=== PATIENT | male | born 1990 | race Caucasian/White ===

== ENCOUNTER 2020-03-26 18:31 | Emergency (ER) | payer SELFPAY ==
[2020-03-26 19:08] VITALS: BP 132/81; PULSE 70; RESP 17; TEMP 36.5; O2SAT 98; BMI 25.7
[2020-03-26 19:32] VITALS: BP 125/82; PULSE 66; RESP 16; O2SAT 99
--- NOTE | 2020-03-26 19:37 | XRR_ITS ---
PROCEDURE INFORMATION: Exam: XR Thoracic Spine, 3 Views Exam date and time: 03/26/2020 7:57 PM Age: 29 years old Clinical indication: Injury or trauma; Fall; Initial encounter; Blunt trauma (contusions or hematomas); Additional info: Fall/injury TECHNIQUE: Imaging protocol: XR of the thoracic spine, 3 views. COMPARISON: No relevant prior studies available. FINDINGS: Vertebrae: Vertebral body height is maintained. No subluxation. Normal bone mineralization. No acute fracture. Soft tissues: No paravertebral soft tissue abnormality. No radiopaque foreign body. Lungs: Visualized lungs are clear. XR/XR thoracic spine 2V [id number] IMPRESSION: No acute fracture of the thoracic spine. CT scan would be recommended if there is continuing clinical concern for fracture.
--- NOTE | 2020-03-26 19:37 | ED_ITS ---
HPI - Back Pain/Injury General: Chief Complaint: Back Pain/Injury Stated Complaint: back pain/fell Time Seen by Provider: 03/26/20 19:35 Source: patient Mode of arrival: ambulatory Limitations: no limitations History of Present Illness: HPI Narrative: Adam is a 29-year-old male who states 2 days ago he slipped and fell after he walked on a towel. He landed on his buttocks and back. Not complaining of pain in his lumbar spine. He denies any radiation of the pain. The pain is located just there in his lumbar spine. He did not hit his head and he did not have loss of consciousness. He is not on any blood thinners. He states range of motion makes his symptoms worse and rest makes them better. He describes the pain as mild to moderate. He denies other injuries or complaints. Associated symptoms: Deny abdominal pain, chills, difficulty walking, dysuria, fatigue, fever(s), hematuria, nausea, syncope, urinary urgency or vomiting Review of Systems Const: Denies: fever(s), chills, body aches, fatigue, malaise or diaphoresis Eyes: Denies: change in vision, blurry vision, photophobia, eye discomfort, eye discharge, eye redness or yellow eyes ENMT: Denies: throat pain, odynophagia, hoarseness, swelling of lips/tongue, ear or mastoid pain, ear discharge, change in hearing or nasal discharge Card: Denies: chest pain, palpitations, irregular heart rhythm, edema, lightheadedness, syncope, pre-syncope, dyspnea on exertion or orthopnea Resp: Denies: dyspnea, productive cough, non-productive cough, wheezing, hemoptysis or chest congestion GI: Denies: abdominal pain, nausea, vomiting, hematemesis, coffee ground emesis, heartburn, diarrhea, constipation, GI cramping, hematochezia or melena : Denies: flank pain, dysuria, urinary frequency, urinary urgency or hematuria Musc: Reports: back pain; Denies: neck pain, extremity pain, extremity swelling, joint pain, joint swelling, joint redness, joint warmth or joint stiffness Skin/Breast: Denies: rash, pruritus, erythema, skin pain or skin tenderness Neuro: Denies: headache(s), numbness in extremities, weakness in extremities, sensory changes, lack of coordination, difficulty walking, dizziness, vertigo, confusion, Slurred speech present or seizure-like activity Sid/Lymph: Denies: easy bruising, easy bleeding, petechiae, purpura or enlarged lymph nodes All/Imm: Denies: urticaria, throat swelling, tongue swelling, facial swelling or acute wheezing PFS ED PFSH: Medical History (Updated 03/26/20 @ 20:53 by Grace Longo) No pertinent past medical history Physical Exam Const: COMMON NORMALS: no acute distress, patient oriented x3, no limitations and alert GENERAL APPEARANCE: cooperative HENMT: COMMON NORMALS: normocephalic, atraumatic, external ears normal, EAC's normal and Normal external nose present HEAD & SCALP: normal to inspection, normocephalic and atraumatic FACE & SINUS: normal facial exam and face symmetric NOSE: Normal external nose present and Normal nares present EXTERNAL EAR: Yes external ears normal EXTERNAL AUDITORY CANAL: EAC's normal MOUTH: Normal oral and palatal mucosa present, lip normal and tongue normal Eye: COMMON NORMALS: Equal, round and reactive pupils present and conjunctivae normal GENERAL EYE: appearance normal, both eyes and all related structures ALIGNMENT: Yes alignment normal PERIORBITAL: periorbital findings normal EYELID: eyelids normal CONJUNCTIVA: Yes conjunctivae normal SCLERA: sclerae normal PUPIL: Yes Equal, round and reactive pupils present Neck/C-Spine: COMMON NORMALS: full ROM, no lymphadenopathy, supple, no meningeal signs and no JVD GENERAL: Yes normal visual inspection and Yes trachea midline Chest: COMMONS NORMALS: normal inspection of the chest and normal palpation of entire chest wall Resp: COMMON NORMALS: normal respiratory effort, No retractions, No use of accessory muscles and clear to auscultation bilaterally EFFORT & INSPECTION: Yes able to speak in complete sentences and Yes symmetric chest movement AUSCULTATION: clear to auscultation bilaterally, no crackles, no rales, no rhonchi and no wheezes Cardio: COMMON NORMALS: no JVD, regular rate, regular rhythm, S1 normal heart sound present and S2 normal heart sound present RATE: regular rate RHYTHM: regular rhythm HEART SOUNDS: S1 normal heart sound present, S2 normal heart sound present, no click, no gallops, no murmurs and no rubs GI: COMMON NORMALS: Soft to palpation and No hepatosplenomegaly present PALPATION: Yes Soft to palpation, No Tenderness to palpation present (GI), No Guarding due to palpation present (GI), No Rigid due to palpation, Yes No hepatosplenomegaly present, No Hernia present, No Palpable mass present and No P ulsatile mass present : COMMON NORMALS: Yes no CVA tenderness BLADDER/KIDNEY EXAM: Yes no CVA tenderness Back/Pelvis: COMMON NORMALS: no CVA tenderness and thoraco-lumbar ROM normal OTHER: Mild tenderness to the midline of the mid and upper lumbar spine. No evidence of contusion. Extremity: COMMON NORMALS: normal to inspection, full ROM, capillary refill normal, no joint enlargement, no clubbing, cyanosis or edema and no calf tenderness Neuro: COMMON NORMALS: patient oriented x3, CN's II-XII intact bilaterally, moves all extremities, no focal motor deficits and no sensory deficits noted SENSORIUM/ORIENTATION: Yes alert MENINGEAL SIGNS: Yes no meningeal signs SPEECH: speech normal Psych: COMMON NORMALS: mental status grossly normal, Normal thought process present, cooperative, normal affect, speech normal and activity/motor behavior normal SPEECH: Yes normal speech THOUGHT PROCESS: Normal thought process present Skin: COMMON NORMALS: no rashes or lesions noted, turgor normal, no jaundice, no petechiae and no mottling GENERAL SKIN EXAM: no rashes or lesions noted and turgor normal Course Vital Signs: Vital signs: Vital Signs Temperature 97.7 F 03/26/20 19:08 Pulse Rate 64 03/26/20 20:35 Respiratory Rate 16 03/26/20 20:35 Blood Pressure 136/84 03/26/20 20:35 Pulse Oximetry 97 03/26/20 20:35 MDM - Back Pain/Injury MDM Narrative: Medical decision making narrative: Adam is a nice 29-year-old male who comes in complaining of back pain after a fall. His x-rays are unremarkable. His exam does not suggest herniated disc, cauda equina syndrome or significant fracture. Patient agrees to go home and try Tylenol Motrin for pain. Imaging Data^: XR Lumbar Spine: Attestation: I personally reviewed and interpreted this imaging study as follows: My impression: No acute fractures dislocation XR Thoracic Spine: Attestation: I personally reviewed and interpreted this imaging study as follows : My impression: No acute thoracic fractures or dislocations Discharge Plan Discharge Patient Disposition: Home Clinical Impression: Back pain Qualifiers: Back pain location: low back pain Chronicity: acute Back pain laterality: bilateral Sciatica presence: without sciatica Qualified Code(s): M54.5 - Low back pain Condition: Stable Discharge Orders: Discharge Order (Routine); Ordered 03/26/20 Ordered By: Grace Longo Referrals: Chana Soto DO [Physician] - 1-3 days Discharge Diet: Usual diet Discharge Activity: Increase activity as tolerated Patient Instructions: Acute Low Back Pain (ED) Activity Restrictions/Additional Instructions: Please return to the ER immediately for any of the signs or symptoms listed on your discharge instruction sheets, worsening/changing of your symptoms, you are not getting better as quickly as expected, or for ANY other cause or concerns. Return to the ER for increased pain, fever, radiation down your legs, loss of bowel or bladder control, numbness in your groin, or for any other cause for concern. Coding Level of Care Code ED Head Waiter/Waitress Banquet for Nhan Fwd Exam Comprehensive
--- NOTE | 2020-03-26 19:37 | XRR_ITS ---
PROCEDURE INFORMATION: Exam: XR Lumbosacral Spine, 2 or 3 Views Exam date and time: 03/26/2020 8:03 PM Age: 29 years old Clinical indication: Injury or trauma; Fall; Initial encounter; Blunt trauma (contusions or hematomas); Additional info: Fall/injury TECHNIQUE: Imaging protocol: XR of the lumbosacral spine, 2 or 3 views. COMPARISON: No relevant prior studies available. FINDINGS: Vertebrae: Vertebral body height is maintained. No subluxation. Normal bone mineralization. No acute fracture. Sacrum/coccyx: The right and left sacroiliac joints are unremarkable. Soft tissues: No paravertebral soft tissue abnormality. No radiopaque foreign body. XR/XR lumbar spine 2-3V* [id number] IMPRESSION: No acute fracture of the lumbar spine. CT scan would be recommended if there is continuing clinical concern for fracture.
[2020-03-26 20:35] VITALS: BP 136/84; PULSE 64; RESP 16; O2SAT 97
[2020-03-26] MEDS: ibuprofen 200 mg Tablet 400 MG PO (21:04)
[2020-03-26] MEDS: acetaminophen 500 mg Tablet 1000 MG PO (21:05)
[2020-03-26 21:08] VITALS: BP 136/84; PULSE 64; RESP 16; TEMP 36.7; O2SAT 97
== END 2020-03-26 21:08 | disposition home or self-care (01) ==
PROVIDERS: Emergency Provider Emergency Medicine
DX: M54.5 Low back pain (principal)
CPT/HCPCS: 12345; 72070; 72100; 99282; 99283

== ENCOUNTER 2021-11-24 14:51 | Emergency (ER) | payer MEDICAID, SELFPAY ==
[2021-11-24 15:03] VITALS: BP 144/83; PULSE 85; RESP 18; TEMP 36.6; O2SAT 97; BMI 32.1
--- NOTE | 2021-11-24 15:08 | XR_ITS ---
WS: [id number] XR chest 1V portable [id number] REASON FOR EXAM: cp FINDINGS: Thoracic aorta is normal. There is mild cardiomegaly. 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 No active pulmonary parenchymal or pleural abnormality. Mild mid thoracic scoliosis. XR/XR chest 1V portable [id number] IMPRESSION: No acute chest abnormality. Mild cardiomegaly.
--- NOTE | 2021-11-24 15:09 | ECG_ITS ---
[facility] Test Date: 2021-11-24 Pat Name: Adam Perace Department: Room: Gender: Male Child Development Consultant: : 1990 Requested By: Andrea Jo Order Number: [id number] Danelle MD: rBuno Monroe M.D. Measurements Intervals [place] Rate: 77 P: 43 W[place]: 181 QRS: 83 QRSD: 126 T: 45 QT: 361 QTc: 409 Interpretive Statements SINUS RHYTHM MODERATE INTRAVENTRICULAR CONDUCTION DELAY [110+ ms QRS DURATION] No previous ECG available for comparison Electronically Signed On 11-24-2021 20:41:13 CDT by Bruno Monroe M.D. [id number]
--- NOTE | 2021-11-24 15:16 | W.ED.CHESTPA ---
Documented by User: [email or web address] Nam 11/26/21 17:02 HPI - Chest Pain General: Chief Complaint: Chest Pain Stated Complaint: heat exposure Time Seen by Provider: 11/24/21 15:08 History of Present Illness: Patient is a 31-year-old male comes to the ED via EMS with chest pain. Patient says he was at work today and he works outside. He started feeling really hot and sweaty. He went and laid down on the grass and then he started feeling some chest pain on the left side of his chest. He rates the pain currently an 8 out of 10. Denies any cardiac history. Chest pain worsens when he sits up or talking or upon inspiration. Denies any syncopal episode or near syncope. Associated symptoms: Deny abdominal pain, dyspnea, fever(s), nausea, palpitations, syncope or vomiting Review of Systems Const: Denies: fever(s), chills or fatigue Eyes: Denies: change in vision or eye discomfort ENMT: Denies: throat pain, odynophagia, nasal discharge or nasal congestion Card: Reports: chest pain; Denies: palpitations, edema, swelling of feet/ankles, syncope, pre-syncope, dyspnea on exertion or orthopnea Resp: Denies: dyspnea, productive cough or non-productive cough GI: Denies: abdominal pain, nausea, vomiting, diarrhea, constipation or hematochezia : Denies: flank pain, difficulty urinating, dysuria or hematuria Musc: Denies: neck pain, back pain or extremity swelling Skin/Breast: Denies: rash or new lesions Neuro: Denies: headache(s), numbness in extremities or weakness in extremities [facility] ED PFSH: Medical History No pertinent past medical history Physical Exam Const: COMMON NORMALS: patient oriented x3 and alert GENERAL APPEARANCE: cooperative HENMT: COMMON NORMALS: normocephalic HEAD & SCALP: normocephalic MOUTH: moist mucous membranes abnormal Details: parched THROAT: posterior oropharynx normal and uvula midline Neck/C-Spine: COMMON NORMALS: supple GENERAL: Yes normal visual inspection Resp: COMMON NORMALS: normal respiratory effort, No retractions, No use of accessory muscles and clear to auscultation bilaterally AUSCULTATION: clear to auscultation bilaterally Cardio: COMMON NORMALS: regular rate, regular rhythm, S1 normal heart sound present, S2 normal heart sound present, No gallops present (Cardio), No clicks present (Cardio), No murmurs present (Cardio) and Peripheral pulses 2+ throughout RATE: regular rate RHYTHM: regular rhythm HEART SOUNDS: S1 normal heart sound present and S2 normal heart sound present PERIPHERAL PULSES: Peripheral pulses 2+ throughout GI: COMMON NORMALS: Normal to inspection, nondistended, normoactive bowel sounds present, Soft to palpation, non-tender and no masses PALPATION: Yes Soft to palpation : COMMON NORMALS: Yes no CVA tenderness BLADDER/KIDNEY EXAM: Yes no CVA tenderness Back/Pelvis: COMMON NORMALS: no CVA tenderness Extremity: COMMON NORMALS: normal to inspection Neuro: COMMON NORMALS: patient oriented x3 and moves all extremities SENSORIUM/ORIENTATION: Yes alert Skin: GENERAL SKIN EXAM: dry skin Course Vital Signs: Vital signs: Vital Signs Temperature 98 F 11/24/21 15:03 Pulse Rate 87 11/24/21 15:24 Respiratory Rate 20 H 11/24/21 17:03 Blood Pressure 142/87 11/24/21 15:24 Pulse Oximetry 100 11/24/21 15:30 MDM - Chest Pain Lab Data I reviewed the patient's lab results. : 11/24/21 15:19 11/24/21 16:27 Radiology Impressions Chest X-Ray 11/24/21 15:08 IMPRESSION: No acute chest abnormality. Mild cardiomegaly. Laboratory Results WBC 8.8 10^3/uL (4.0-10.0) 11/24/21 15:19 RBC 5.26 10^6/uL (4.1-5.3) 11/24/21 15:19 Hgb 16.5 g/dL (11.7-16.6) 11/24/21 15:19 Hct 48.8 % (42.0-52.0) 11/24/21 15:19 MCV 92.8 fl (80-94) 11/24/21 15:19 MCH 31.4 pg (28.0-34.0) 11/24/21 15:19 MCHC 33.8 g/dL (30.0-36.0) 11/24/21 15:19 RDW 12.7 % (12.1-15.1) 11/24/21 15:19 Plt Count 265 10^3/cmm (130-400) 11/24/21 15:19 MPV 11.6 fL (7.4-10.4) H 11/24/21 15:19 Neut % (Auto) 62.3 % 11/24/21 15:19 Lymph % (Auto) 24.9 % 11/24/21 15:19 [place] % (Auto) 8.6 % 11/24/21 15:19 Eos % (Auto) 3.7 % 11/24/21 15:19 Baso % (Auto) 0.3 % 11/24/21 15:19 Neut # (Auto) 5.48 10^3/uL (1.8-7.7) 11/24/21 15:19 Lymph # (Auto) 2.2 10^3/uL (0.8-4.8) 11/24/21 15:19 [place] # (Auto) 0.8 10^3/uL (0.2-0.9) 11/24/21 15:19 Eos # (Auto) 0.3 10^3/uL (0.0-0.8) 11/24/21 15:19 Baso # (Auto) 0.0 10^3/uL (0.0-0.1) 11/24/21 15:19 Nucleated RBC % (auto) 0 % 11/24/21 15: Nucleated RBCs # 0.0 /100WBC 11/24/21 15:19 Sodium 138 mmol/L (136-145) 11/24/21 16:27 Potassium 3.7 mmol/L (3.5-5.1) 11/24/21 16:27 Chloride 105 mmol/L (98-107) 11/24/21 16:27 Carbon Dioxide 22 mmol/L (22-29) 11/24/21 16:27 Anion Gap 14.7 (5-19) 11/24/21 16:27 BUN 13 mg/dL (6-20) 11/24/21 16:27 Creatinine 0.9 mg/dL (0.7-1.2) 11/24/21 16:27 GFR Calculation 99.8 mL/min (90-130) 11/24/21 16:27 Glucose 86 mg/dL (65-115) 11/24/21 16:27 Calculated Osmolality 285 mOsm/kg (285-295) 11/24/21 16:27 Calcium 9.3 mg/dL (8.5-10.5) 11/24/21 16:27 Total Bilirubin 0.5 mg/dL (0.15-1.2) 11/24/21 16:27 AST 121 U/L (0-40) H 11/24/21 16:27 ALT 220 U/L (0-41) H 11/24/21 16:27 Alkaline Phosphatase 87 IU/L (40-130) 11/24/21 16:27 Creatine Kinase 201 U/L (39-308) 11/24/21 15:19 Troponin T Baseline 7 ng/L (0-15) 11/24/21 15:19 Troponin T 120 Minute 6.00 ng/L (0-15) 11/24/21 17:21 Delta Troponin T -1.00 ABS# (0-10) L 11/24/21 17:21 Total Protein 7.5 g/dL (6.6-8.7) 11/24/21 16:27 Albumin 4.2 g/dL (3.5-5.2) 11/24/21 16:27 Globulin 3.3 g/dL (1.3-4.6) 11/24/21 16:27 Discharge Plan Discharge Patient Disposition: Home Clinical Impression: Chest pain Qualifiers: Chest pain type: unspecified Qualified Code(s): R07.9 - Chest pain, unspecified Heat exhaustion Qualifiers: Encounter type: initial encounter Qualified Code(s): T67.5XXA - Heat exhaustion, unspecified, initial encounter Condition: Stable Prescriptions: No Action No Known Home Medications 0RF Discharge Orders: Discharge ED (Routine); Ordered 11/24/21 Ordered By: Rodolfo Omer Discharge Diet: Usual diet Discharge Activity: Increase activity as tolerated Patient Instructions: Heat Exhaustion (ED) Activity Restrictions/Additional Instructions: Make sure to drink plenty of water and fluids. Use acetaminophen and ibuprofen for pain. When sweating a lot you should supplement water with Gatorade solution. Follow-up with primary care for further instruction. Return to ER for new concerns. Sign Out Sign Out Data: Patient Sign Out occurred on 11/24/21 at 17:07. Patient's care was discussed, and care was transferred from to Rodolfo Omer. Coding Level of Care Code ED Chamber Walker for Chg Fwd Exam Comprehensive Documented by User: RABIA Mukherjee 11/24/21 17:45 HPI - Chest Pain General: Chief Complaint: Chest Pain Stated Complaint: heat exposure Time Seen by Provider: 11/24/21 15:08 [facility] ED PFSH: Medical History No pertinent past medical history Course Vital Signs: Vital signs: Vital Signs Temperature 98 F 11/24/21 15:03 Pulse Rate 87 11/24/21 15:24 Respiratory Rate 20 H 11/24/21 17:03 Blood Pressure 142/87 11/24/21 15:24 Pulse Oximetry 100 11/24/21 15:30 MDM - Chest Pain Medical Decision Making 31-year-old male patient comes in today for complaints of chest discomfort. Patient was at work and became overheated he reports and then laid down and started having left-sided chest discomfort. Patient appeared in moderate to severe pain. Respirations were even lungs were clear to auscultation. Vital signs noted a blood pressure of 144/83. EKG showed sinus rhythm. No edema was noted in the extremities. Differential diagnosis includes but not limited to ACS, heat exhaustion, dehydration. Patient was treated for pain and anxiety with morphine and Ativan. Patient was treated for dehydration with saline. After IV fluids and medications patient felt better and was able to eat and drink without difficulty. Laboratory values noted no abnormality and electrolytes, or in blood count. Initial troponin was 7. Patient did note some mild elevation in AST and ALT. Patient is believed to have had heat exhaustion. Encourage patient to drink plenty of water and also supplement with electrolyte solution when sweating profusely. Patient reported understanding of care plan need for follow-up or return to the ER. Lab Data : 11/24/21 15:19 11/24/21 16:27 Radiology Impressions Chest X-Ray 11/24/21 15:08 IMPRESSION: No acute chest abnormality. Mild cardiomegaly. Laboratory Results WBC 8.8 10^3/uL (4.0-10.0) 11/24/21 15:19 RBC 5.26 10^6/uL (4.1-5.3) 11/24/21 15:19 Hgb 16.5 g/dL (11.7-16.6) 11/24/21 15:19 Hct 48.8 % (42.0-52.0) 11/24/21 15:19 MCV 92.8 fl (80-94) 11/24/21 15:19 MCH 31.4 pg (28.0-34.0) 11/24/21 15:19 MCHC 33.8 g/dL (30.0-36.0) 11/24/21 15:19 RDW 12.7 % (12.1-15.1) 11/24/21 15:19 Plt Count 265 10^3/cmm (130-400) 11/24/21 15:19 MPV 11.6 fL (7.4-10.4) H 11/24/21 15:19 Neut % (Auto) 62.3 % 11/24/21 15:19 Lymph % (Auto) 24.9 % 11/24/21 15:19 [place] % (Auto) 8.6 % 11/24/21 15:19 Eos % (Auto) 3.7 % 11/24/21 15:19 Baso % (Auto) 0.3 % 11/24/21 15:19 Neut # (Auto) 5.48 10^3/uL (1.8-7.7) 11/24/21 15:19 Lymph # (Auto) 2.2 10^3/uL (0.8-4.8) 11/24/21 15:19 [place] # (Auto) 0.8 10^3/uL (0.2-0.9) 11/24/21 15:19 Eos # (Auto) 0.3 10^3/uL (0.0-0.8) 11/24/21 15:19 Baso # (Auto) 0.0 10^3/uL (0.0-0.1) 11/24/21 15:19 Nucleated RBC % (auto) 0 % 11/24/21 15:19 Nucleated RBCs # 0.0 /100WBC 11/24/21 15:19 Sodium 138 mmol/L (136-145) 11/24/21 16:27 Potassium 3.7 mmol/L (3.5-5.1) 11/24/21 16:27 Chloride 105 mmol/L (98-107) 11/24/21 16:27 Carbon Dioxide 22 mmol/L (22-29) 11/24/21 16:27 Anion Gap 14.7 (5-19) 11/24/21 16:27 BUN 13 mg/dL (6-20) 11/24/21 16:27 Creatinine 0.9 mg/dL (0.7-1.2) 11/24/21 16:27 GFR Calculation 99.8 mL/min (90-130) 11/24/21 16:27 Glucose 86 mg/dL (65-115) 11/24/21 16:27 Calculated Osmolality 285 mOsm/kg (285-295) 11/24/21 16:27 Calcium 9.3 mg/dL (8.5-10.5) 11/24/21 16:27 Total Bilirubin 0.5 mg/dL (0.15-1.2) 11/24/21 16:27 AST 121 U/L (0-40) H 11/24/21 16:27 ALT 220 U/L (0-41) H 11/24/21 16:27 Alkaline Phosphatase 87 IU/L (40-130) 11/24/21 16:27 Creatine Kinase 201 U/L (39-308) 11/24/21 15:19 Troponin T Baseline 7 ng/L (0-15) 11/24/21 15:19 Troponin T 120 Minute 6.00 ng/L (0-15) 11/24/21 17:21 Delta Troponin T -1.00 ABS# (0-10) L 11/24/21 17:21 Total Protein 7.5 g/dL (6.6-8.7) 11/24/21 16:27 Albumin 4.2 g/dL (3.5-5.2) 11/24/21 16:27 Globulin 3.3 g/dL (1.3-4.6) 11/24/21 16:27 Discharge Plan Discharge Patient Disposition: Home Clinical Impression: Chest pain Qualifiers: Chest pain type: unspecified Qualified Code(s): R07.9 - Chest pain, unspecified Heat exhaustion Qualifiers: Encounter type: initial encounter Qualified Code(s): T67.5XXA - Heat exhaustion, unspecified, initial encounter Condition: Stable Prescriptions: No Action No Known Home Medications 0RF Discharge Orders: Discharge ED (Routine); Ordered 11/24/21 Ordered By: Rodolfo Omer Discharge Diet: Usual diet Discharge Activity: Increase activity as tolerated Patient Instructions: Heat Exhaustion (ED) Activity Restrictions/Additional Instructions: Make sure to drink plenty of water and fluids. Use acetaminophen and ibuprofen for pain. When sweating a lot you should supplement water with Gatorade solution. Follow-up with primary care for further instruction. Return to ER for new concerns. Sign Out Sign Out Data: Patient Sign Out occurred on 11/24/21 at 17:07. Patient's care was discussed, and care was transferred from to Rodolfo Omer. Coding Level of Care Code ED Chamber Walker for Nhan Carballo Exam Comprehensive
[2021-11-24 15:24] VITALS: BP 142/87; PULSE 87; RESP 20; O2SAT 98
[2021-11-24] MEDS: ondansetron 2 mg/ML SDV 2 mL 4 MG IVP (15:26)
[2021-11-24] MEDS: sodium chloride 0.9% 1,000 ML 999 ML IV ×2 (15:26→16:59)
[2021-11-24 15:30] VITALS: RESP 16; O2SAT 100
[2021-11-24] MEDS: morphine 4 mg/mL SDV 1 mL IVP (15:30)
[2021-11-24] MEDS: aspirin 81 mg Chew Tablet 324 MG PO (15:30)
[2021-11-24 15:31] LABS: Basophils % 0.3 %; Eosinophils # 0.3 10^3/uL (0.0-0.8); Eosinophils % 3.7 %; Hematocrit 48.8 % (42.0-52.0); Hemoglobin 16.5 g/dL (11.7-16.6); Lymphocytes # 2.2 10^3/uL (0.8-4.8); Lymphocytes % 24.9 %; Mean Corpuscular HGB Conc 33.8 g/dL (30.0-36.0); Mean Corpuscular Hemoglobin 31.4 pg (28.0-34.0); Mean Corpuscular Volume 92.8 fl (80-94); Mean Platelet Volume 11.6 fL (7.4-10.4); Monocytes # 0.8 10^3/uL (0.2-0.9); Monocytes % 8.6 %; Neutrophils # 5.48 10^3/uL (1.8-7.7); Neutrophils % 62.3 %; Nucleated Red Blood Cells % 0 %; Platelet Count 265 10^3/cmm (130-400); Red Blood Count 5.26 10^6/uL (4.1-5.3); Red Cell Distribution Width 12.7 % (12.1-15.1); White Blood Count 8.8 10^3/uL (4.0-10.0)
[2021-11-24 15:56] LABS: Troponin(5th) Baseline 7 ng/L (0-15)
[2021-11-24 17:01] LABS: Alanine Aminotransferase 220 U/L (0-41); Albumin Level 4.2 g/dL (3.5-5.2); Alkaline Phosphatase 87 IU/L (40-130); Anion Gap 14.7 (5-19); Aspartate Amino Transferase 121 U/L (0-40); Blood Urea Nitrogen 13 mg/dL (6-20); Calcium 9.3 mg/dL (8.5-10.5); Carbon Dioxide 22 mmol/L (22-29); Chloride 105 mmol/L (98-107); Globulin 3.3 g/dL (1.3-4.6); Glomerular Filtration Rate 99.8 mL/min (90-130); Glucose 86 mg/dL (65-115); Osmolality Calculated 285 mOsm/kg (285-295); Potassium 3.7 mmol/L (3.5-5.1); Sodium 138 mmol/L (136-145); Total Bilirubin 0.5 mg/dL (0.15-1.2); Total Protein 7.5 g/dL (6.6-8.7)
[2021-11-24 17:03] VITALS: RESP 20
[2021-11-24] MEDS: morphine 4 mg/mL SDV 1 mL 2 MG IVP (17:03)
[2021-11-24] MEDS: LORazepam 2 mg/mL INJ 1 mL 1 MG IVP (17:04)
[2021-11-24 19:31] LABS: Creatine Phosphokinase 201 U/L (39-308)
== END 2021-11-24 18:12 | disposition home or self-care (01) ==
PROVIDERS: Physician Assistant; Emergency Provider Nurse Practitioner Family
DX: R07.9 Chest pain, unspecified (principal); T67.5XXA Heat exhaustion, unspecified, initial encounter; X30.XXXA Exposure to excessive natural heat, initial encounter
CPT/HCPCS: 36415; 71045; 80053; 82550; 84484; 85025; 93005; 96361; 96374; 96375; 96376; 99285; J2060; J2270; J2405; J7030